=== PATIENT | female | born 1995 | race Caucasian/White ===

== ENCOUNTER 2018-08-07 16:38 | Emergency (ER) | payer MEDICAID ==
[~2018-08-07] VITALS: Ht 149.9 cm; Wt 48.0 kg
[2018-08-07] MEDS ORDERED: IBUPROFEN 400MG TABLET PO ONE (20:15)
[2018-08-07 21:55] VITALS: BP 105/67
== END 2018-08-07 22:16 | disposition home or self-care (01) ==
LOC: ER 16:38
DX: M25.551 Pain in right hip (principal); F17.210 Nicotine dependence, cigarettes, uncomplicated; V43.52XA Car driver injured in collision with other type car in traffic accident, initial encounter; Y93.89 Activity, other specified; Y92.488 Other paved roadways as the place of occurrence of the external cause
CPT/HCPCS: 73502; 99283